=== PATIENT | male | born 1950 | race Caucasian/White ===

== ENCOUNTER → 2017-10-25 | Day surgery (SDC) | payer MEDICARE, BC ==
[~2017-10-25] MED LIST: Lactated Ringers 1,000 ML IV SCH; Propofol 200 MG/20 ML SDV IV ONE
[2017-10-25 10:40] VITALS: BP 143/77
--- NOTE | 2017-10-28 09:29 | OR ---
DATE OF OPERATION: 10/25/2017 PREOPERATIVE DIAGNOSIS: FOLLOW UP POLYPS. POSTOPERATIVE DIAGNOSIS: FOLLOW UP POLYPS. SURGEON: Mason Connolly MD PROCEDURE: FULL-LENGTH COLONOSCOPY. 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 COMPLICATIONS: None. SPECIMEN: None. FINDINGS: 1. Full-length colonoscopy. 2. Moderate sigmoid diverticulosis. 3. Tubulovillous adenoma, cecum. RECOMMENDATIONS: It was a difficult patient with a difficult scope. We were having a hard time keeping the scope in the cecal pouch to safely remove this larger villous adenoma. There was no stalk on this and felt to be safer to remove via Dr. Babcock. INDICATIONS: The patient had a prior colonoscopy and had a larger villous adenoma removed in his sigmoid. He is in for a 2-year follow up. DESCRIPTION OF PROCEDURE: The patient was prepped and draped, placed in left lateral decubitus position. A lubricated Olympus colonoscope was inserted and relatively easily advanced to the cecum. The patient does have a long and tortuous colon. We were able to get right up to the cecum and visualize greater than 1 cm tubulovillous adenoma in the cecal pouch, but we had to put him in a couple of different positions to get the scope into the pouch itself. We were having a hard time holding the scope there, to insert snare for retrieval. The patient was starting to have some bradycardia due to abdominal pressure, and we felt unsafe to remove this in [place], and we elected to leave this for a higher level of care. The ascending colon was benign. There were a few small hyperplastic polyps right at the hepatic flexure, which were left at this time. Transverse and descending colons unremarkable. The patient does have scattered diverticula, moderate in severity, in the sigmoid region without any other lesions seen. No vascular abnormalities, signs of colitis, or bleeding sites. Rectal vault was benign. Retroflexion showed no anal lesions. Air was suctioned and scope was removed without complication. NGHIA/ANURAG /[id number]
== END ==
LOC: CC.SDS 08:34
PROVIDERS: ATTEND Family Medicine
DX: Z12.11 Encounter for screening for malignant neoplasm of colon (principal); K63.5 Polyp of colon; K57.30 Diverticulosis of large intestine without perforation or abscess without bleeding; R00.1 Bradycardia, unspecified; I10 Essential (primary) hypertension; N40.0 Benign prostatic hyperplasia without lower urinary tract symptoms; Z86.010 Personal history of colon polyps; Z79.82 Long term (current) use of aspirin; Z79.899 Other long term (current) drug therapy; Z72.0 Tobacco use
CPT/HCPCS: J2704; J7120

== ENCOUNTER → 2018-11-14 | Day surgery (SDC) | payer MEDICARE, BC ==
[2018-11-14 09:45] VITALS: BP 104/64
--- NOTE | 2018-11-14 13:36 | OR ---
DATE OF OPERATION: 11/14/2018 PREOPERATIVE DIAGNOSIS: FOLLOW UP POLYPS. POSTOPERATIVE DIAGNOSIS: FOLLOW UP POLYPS. SURGEON: Mason Connolly MD PROCEDURE: DIAGNOSTIC COLONOSCOPY WITH SNARE POLYPECTOMY X2. 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 COMPLICATIONS: None. SPECIMEN: Villous adenomas, right colon x2. FINDINGS: 1. Full-length colonoscopy. 2. [id number] sigmoid diverticulosis. 3. Villous adenomas, less than a cm, right colon x2. RECOMMENDATIONS: Followup colonoscopy in 3 years. INDICATIONS: The patient had a prior colonoscopy with multiple polyps removed by GI in the right colon including a large one in the cecum. They recommended a 1-year followup. DESCRIPTION OF PROCEDURE: The patient was prepped and draped, placed in left lateral decubitus position. A lubricated Olympus colonoscope was inserted and with ease advanced to the cecum. We were able to directly visualize the ileocecal valve and appendiceal orifice. The bowel prep was fine. Upon withdrawal, the cecal pouch looked fine, I did not see any polyp recurrence in that area. In the proximal ascending colon, the patient had a flat villous adenoma, approximately a cm in size, removed with a snare, and suctioned into polyp trap #1. He had a 2nd villous lesion, smaller, about 0.5 cm in the mid ascending colon, also removed with a snare and suctioned into polyp trap #2. The rest of the right and transverse colons were unremarkable. Left colon had diffuse diverticulosis, [id number] in severity, mostly in the sigmoid and rectosigmoid junction. No signs of any further polyps, mass, ulceration, or bleeding sites. No vascular abnormalities or signs of colitis. The rectal vault was unremarkable. Retroflexion of the scope in the rectum showed no anal lesions. Air was suctioned, the scope removed without complication. NGHIA/ANURAG /[id number]
== END ==
LOC: CC.SDS 07:11
PROVIDERS: ATTEND Family Medicine
DX: D12.2 Benign neoplasm of ascending colon (principal); D12.3 Benign neoplasm of transverse colon; E78.5 Hyperlipidemia, unspecified; I10 Essential (primary) hypertension; Z79.899 Other long term (current) drug therapy; Z86.010 Personal history of colon polyps; I48.91 Unspecified atrial fibrillation; K57.30 Diverticulosis of large intestine without perforation or abscess without bleeding
CPT/HCPCS: 45385; J2704; J7120

== ENCOUNTER 2018-12-30 12:10 | Emergency (ER) | payer MEDICARE, BC ==
[2018-12-30 12:33] VITALS: BP 154/89
--- NOTE | 2018-12-30 12:45 | EDM.PDOC ---
ED HPI GENERAL MEDICAL PROBLEM - General Stated Complaint: PASSED OUT Time Seen by Provider: 12/30/18 12:34 - History of Present Illness INITIAL COMMENTS - FREE TEXT/NARRATIVE: Etienne is a 68 year old male who presents to the ED via EMS. Reports he was at an auction sale this morning and was standing still for about 1.5 hours. He reports his legs started to get weak so he went to sit down on a tractor hitch/ wheel. Reports the next thing he knows he woke up on the ground. Bystanders reports brief LOC. He did fall and hit his head and RUE on the tractor. Has hematoma to right temporal area and abrasion to RUE. He denies any complaints upon presentation to ED. He denies any dizziness or chest pain prior to syncopal episode. He denies any headache, pain, N/V/D, chest pain, cough, shortness of breath. He reports he is feeling well and has no complaints. Patient received 1 L NS fluid bolus enroute via EMS. Onset: Today, Sudden Onset Date: 12/30/18 Onset Time: 11:00 Duration: Resolved Prior to Arrival Associated Symptoms: Reports: Syncope. 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: Reports: See EMS Report - Related Data Allergies Allergy/AdvReac Type Severity Reaction Status Date / Time No Known Allergies Allergy Verified 11/14/18 07:24 Home Meds: Home Meds Aspirin [Halfprin] 81 mg PO DAILY 12/31/14 [History] Cranberry Extract [Cranberry] 250 mg PO DAILY 12/31/14 [History] Metoprolol Tartrate 50 mg PO BID 10/25/17 [History] Lisinopril/Hydrochlorothiazide [Lisinopril-Hctz 20-25 mg Tab] 1.5 each PO DAILY 11/13/18 [History] amLODIPine Besylate [Amlodipine Besylate] 10 mg PO DAILY 11/13/18 [History] ED ROS GENERAL - Review of Systems Review Of Systems: ROS reveals no pertinent complaints other than HPI. - Physical Exam Exam: See Below Exam Limited By: No Limitations General Appearance: Alert, WD/WN, No Apparent Distress Eye Exam: Bilateral Eye: EOMI, Normal Fundi, Normal Inspection, PERRL Ears: Normal External Exam, Normal Canal, Hearing Grossly Normal, Normal TMs Nose: Normal Inspection, Normal Mucosa, No Blood Throat/Mouth: Normal Inspection, Normal Lips, Normal Teeth, Normal Gums, Normal Oropharynx, Normal Voice, No Airway Compromise Head Exam: Normocephalic, Scalp Abrasions (left temporal area), Scalp Hematoma ( left temporal area) Neck: Normal Inspection, Supple, Non-Tender, Full Range of Motion Respiratory/Chest: No Respiratory Distress, Lungs Clear, Normal Breath Sounds, No Accessory Muscle Use, Chest Non-Tender Cardiovascular: Normal Peripheral Pulses, Regular Rate, Rhythm, No Edema, No Gallop, No JVD, No Murmur, No Rub GI/Abdominal: Normal Bowel Sounds, Soft, Non-Tender, No Organomegaly, No Distention, No Abnormal Bruit, No Mass, Hernia (umbilical) Neuro Exam (Abbreviated): Alert, Oriented, CN II-XII Intact, Normal Cognition, Normal Gait, Normal Reflexes, No Motor/Sensory Deficits Back Exam: Normal Inspection, Full Range of Motion, NT Extremities: Normal Inspection, Normal Range of Motion, Non-Tender, No Pedal Edema, Normal Capillary Refill Psychiatric: Normal Affect, Normal Mood Course - Vital Signs Last Recorded V/S: Last Vital Signs Temp 98.9 F 12/30/18 12:10 Pulse 73 12/30/18 12:10 Resp 20 12/30/18 12:10 BP 154/89 H 12/30/18 12:10 Pulse Ox 98 12/30/18 12:10 - Orders/Labs/Meds Orders: Active Orders 24 hr Category Date Time Status Head wo Cont [CT] Stat Exams 12/30/18 12:44 Taken Labs: Laboratory Tests 12/30/18 12/30/18 12/30/18 Range/Units 12:26 12:26 12:26 WBC 12.3 H (5.0-10.0) 10^3/uL RBC 5.19 (4.50-6.00) 10^6/uL Hgb 15.7 (14.0-18.0) g/dL Hct 45.7 (40.0-54.0) % MCV 88.1 (82.0-94.0) fL MCH 30.3 (27.0-32.0) pg MCHC 34.4 (33.0-38.0) g/dL RDW Coeff of Dontae 13.5 (11.0-15.0) % Plt Count 197 (150-400) 10^3/uL Neut % (Auto) 85.6 H (35-85) % Lymph % (Auto) 5.9 L (10-55) % Rich % (Auto) 6.8 (0-16) % Eos % (Auto) 1.5 (0-5) % Baso % (Auto) 0.2 (0-3) % Neut # (Auto) 10.51 H (1.80-7.00) 10^3/uL Lymph # (Auto) 0.73 L (1.00-4.80) 10^3/uL Rich # (Auto) 0.84 H (0.00-0.80) 10^3/uL Eos # (Auto) 0.18 (0.00-0.45) 10^3/uL Baso # (Auto) 0.02 10^3/uL Sodium 141 (136-145) mEq/L Potassium 3.5 (3.5-5.0) mEq/L Chloride 103 (98-106) mEq/L Carbon Dioxide 30 (21-32) mmol/L BUN 25 H (7-18) mg/dL Creatinine 1.2 (0.7-1.3) mg/dL Est Cr Clr Drug Dosing 65.66 mL/min Estimated GFR (MDRD) > 60 (>=60) mL/min Glucose 119 H (75-99) mg/dL Calcium 9.2 (8.4-10.1) mg/dL Total Bilirubin 0.6 (0.0-1.0) mg/dL AST 19 (15-37) U/L ALT 25 (12-78) U/L Alkaline Phosphatase 72 (46-116) U/L Troponin I < 0.017 (0.00-0.06) ng/mL Total Protein 7.0 (6.4-8.2) g/dL Albumin 3.5 (3.4-5.0) g/dL TSH, Ultra Sensitive 3.17 (0.36-5.60) uIU/mL Urine Color Yellow (YELLOW) Urine Appearance Clear (CLEAR) Urine pH 6.5 (4.5-8.0) Ur Specific [place] 1.020 (1.003-1.020) Urine Protein Negative (NEGATIVE) mg/dL Urine Glucose (UA) Negative (NEGATIVE) mg/dL Urine Ketones Negative (NEGATIVE) mg/dL Urine Occult Blood Negative (NEGATIVE) Urine Nitrite Negative (NEGATIVE) Urine Bilirubin Negative (NEGATIVE) Urine Urobilinogen 0.2 (0.2-1.0) EU/dL Ur Leukocyte Esterase Negative (NEGATIVE) - Radiology Interpretation Free Text/Narrative:: Head CT negative for acute changes. CT Results Date: 12/30/18 CT Results Time: 14:42 - Re-Assessments/Exams Free Text/Narrative Re-Assessment/Exam: 12/30/18 13:45 Discussed lab results with patient and . Labs all stable. Awaiting CT results. Patient has no complaints and is feeling well. Cardiac monitoring remains NSR. 12/30/18 14:[address] results and discharge recommendations with patient and . Patient doing well. No complaints. Departure - Departure Time of Disposition: 14:40 Disposition: Home, Self-Care 01 Condition: Good Clinical Impression: Vasovagal syncope - Discharge Information *PRESCRIPTION DRUG MONITORING PROGRAM REVIEWED*: Not Applicable *COPY OF PRESCRIPTION DRUG MONITORING REPORT IN PATIENT EDDIE: Not Applicable Referrals: Jeffy Morris PA-C [Primary Care Provider] - Forms: ED Department Discharge Additional Instructions: 1) Take it easy the next few days 2) Drink at least 64 ounces water daily 3) Avoid standing still for excessive time periods 4) Follow up with Joseph HALEY in next 5-7 days - My Orders Last 24 Hours: My Active Orders 12/30/18 12:44 Head wo Cont [CT] Stat - Assessment/Plan Last 24 Hours: My Active Orders 12/30/18 12:44 Head wo Cont [CT] Stat Plan: Patient received 1 L fluid bolus. Was asymptomatic throughout ED stay. Discussed with patient and that he likely had vasovagal syncopal episode as he was standing still for extended period of time. All workup normal. Head CT negative. Recommended patient follow up outpatient with PCP for further workup in next 5-7 days. Patient and verbalized understanding. Patient discharged from facility in satisfactory condition. Ambulatory at time of discharge.
[2018-12-30 13:02] LABS: CHLORIDE,CL 103 mEq/L (98-106); SODIUM,NA 141 mEq/L (136-145)
== END 2018-12-30 14:50 | disposition home or self-care (01) ==
LOC: CC.ED 12:10
DX: R55 Syncope and collapse (principal); S00.01XA Abrasion of scalp, initial encounter; Z79.899 Other long term (current) drug therapy; W18.39XA Other fall on same level, initial encounter; Z79.82 Long term (current) use of aspirin
CPT/HCPCS: 36415; 70450; 80053; 81003; 84443; 84484; 85025; 93005; 99285-25

== ENCOUNTER → 2019-02-19 | Day surgery (SDC) | payer MEDICARE, BC ==
[~2019-02-19] MED LIST changes: +Bupivacaine 0.25%/EPINEPHrine 1:200,000 10 ML SDV ONE; +Midazolam 1 MG/ML 2 ML SDV IV ONE; +fentaNYL 100 MCG/2 ML SDV IV ONE
[2019-02-19 16:49] VITALS: BP 136/88
--- NOTE | 2019-02-19 17:40 | OR ---
DATE OF OPERATION: 02/19/2019 PREOPERATIVE DIAGNOSIS: RIGHT CARPAL TUNNEL SYNDROME. POSTOPERATIVE DIAGNOSIS: RIGHT CARPAL TUNNEL SYNDROME. SURGEON: Narciso Gallagher MD PROCEDURE: RELEASE OF RIGHT CARPAL TUNNEL SYNDROME. ANESTHESIA: Eliseo block and local anesthesia. SPECIMEN: None. INDICATIONS: This 68-year-old male has had bilateral carpal tunnel syndrome and fairly good relief after the left one has been released. He now has more difficulty with the right one. DESCRIPTION OF PROCEDURE: After adequate preparation, a longitudinal incision was made along the median palm crease at the wrist and taken down to the transverse carpal ligament. This was sharply incised with a 15 blade and using sharp dissection and a small Metzenbaum scissor, the entire transverse carpal ligament was transected. This was then freed up from the median nerve underneath slightly. No injury to the nerve was noted. There was almost no bleeding. Local 0.25% Marcaine was used to infiltrate the transverse carpal ligament. The wound was closed using interrupted 2-0 nylon sutures, which will be removed in 2 weeks. Local was then infiltrated into the skin. BPB/MODL /[id number]
== END ==
LOC: CC.SDS 09:19
PROVIDERS: ATTEND Surgery
DX: G56.01 Carpal tunnel syndrome, right upper limb (principal); I10 Essential (primary) hypertension; E78.5 Hyperlipidemia, unspecified; Z79.82 Long term (current) use of aspirin; Z79.899 Other long term (current) drug therapy; Z86.79 Personal history of other diseases of the circulatory system
CPT/HCPCS: 64721; J2250; J2704; J3010; J7120

== ENCOUNTER 2019-09-23 20:05 | Observation (INO) | payer MEDICARE, BC ==
[2019-09-23] MEDS ORDERED: Aspirin 81 MG Tab.Chew PO ONE (20:19)
[2019-09-23 20:50] LABS: CHLORIDE,CL 105 mEq/L (98-106); SODIUM,NA 144 mEq/L (136-145)
--- NOTE | 2019-09-23 21:23 | EDM.PDOC ---
ED HPI GENERAL MEDICAL PROBLEM - General Chief Complaint: General Stated Complaint: passed out Time Seen by Provider: 09/23/19 20:33 Source of Information: Reports: Patient, Family History Limitations: Reports: No Limitations - History of Present Illness INITIAL COMMENTS - FREE TEXT/NARRATIVE: Patient presents to ER per EMS after a syncopal episode at home. 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 Was doing fine at that time but admits was "tired". Came upstairs to take a shower and eat supper. He was sitting at the table when he told his he wasn't feeling well. Was on a stool and leaning down on his elbows. Not responding much verbally to and arm was shaking. She proceeded to call 911 and while doing so, fell to the floor and was "out" for a few seconds. EMS noted patient in atrial fib. Has history of paroxysmal atrial fib. Has been doing well for over a year, currently not on any medications for it but noted to be on metoprolol. Family reports that was in [facility] back in 2017 when diagnosed. Rate was "high but he never even noted it". patient currently feels well. Denies any chest pain, shortness of breath or nausea. No lightheadedness. Has had a mild URI as of late with a cough. No fevers. Onset: Today, Sudden Duration: Minutes: Location: Reports: Head Associated Symptoms: Reports: Cough, Syncope. Denies: Confusion, Chest Pain, Fever/Chills, Loss of Appetite, Nausea/Vomiting, Shortness of Breath - Related Data Allergies Allergy/AdvReac Type Severity Reaction Status Date / Time No Known Allergies Allergy Verified 02/19/19 10:11 Home Meds: Home Meds Aspirin [Halfprin] 81 mg PO DAILY 12/31/14 [History] Cranberry Fruit Extract [Cranberry] 250 mg PO DAILY 12/31/14 [History] Metoprolol Tartrate 50 mg PO BID 10/25/17 [History] Lisinopril/Hydrochlorothiazide [Lisinopril-Hctz 20-25 mg Tab] 1.5 each PO DAILY 11/13/18 [History] amLODIPine Besylate [Amlodipine Besylate] 10 mg PO DAILY 11/13/18 [History] Past Medical History Cardiovascular History: Reports: Afib, Hypertension Gastrointestinal History: Reports: Bowel Obstruction - Infectious Disease History Infectious Disease History: Reports: None - Past Surgical History Male Surgical History: Reports: Prostatectomy Social & Family History - Family History Family Medical History: Noncontributory - Tobacco Use Smoking Status *Q: Never Smoker - Caffeine Use Caffeine Use: Reports: None - Recreational Drug Use Recreational Drug Use: No ED ROS GENERAL - Review of Systems Review Of Systems: See Below Constitutional: Reports: Fatigue. Denies: Fever, Chills, Malaise, Weakness, Decreased Appetite HEENT: Denies: Ear Pain, Rhinitis, Sinus Problem, Throat Pain, Vertigo Respiratory: Reports: Cough. Denies: Shortness of Breath Cardiovascular: Reports: Lightheadedness (resolved). Denies: Chest Pain, Edema Endocrine: Reports: Fatigue GI/Abdominal: Denies: Abdominal Pain, Black Stool, Bloody Stool, Nausea, Vomiting : Reports: No Symptoms Musculoskeletal: Reports: No Symptoms Skin: Reports: No Symptoms Neurological: Reports: Syncope, Weakness. Denies: Dizziness ED EXAM, GENERAL - Physical Exam Exam: See Below Exam Limited By: No Limitations General Appearance: Alert, WD/WN, No Apparent Distress Eye Exam: Bilateral Eye: EOMI, PERRL Ears: Normal External Exam, Normal TMs Nose: Normal Inspection, Normal Mucosa, No Blood Throat/Mouth: Normal Inspection, Normal Oropharynx Head: Normocephalic Neck: Normal Inspection, Supple, Non-Tender Respiratory/Chest: No Respiratory Distress, Lungs Clear, Normal Breath Sounds Cardiovascular: Irregularly Irregular GI/Abdominal: Normal Bowel Sounds, Soft, Non-Tender Extremities: Normal Inspection, No Pedal Edema Neurological: Alert, Oriented Skin Exam: Warm, Dry Course - Vital Signs Last Recorded V/S: Last Vital Signs Temp 97.2 F 09/23/19 20:07 Pulse 82 09/23/19 20:52 Resp 18 09/23/19 20:52 BP 103/66 09/23/19 20:52 Pulse Ox 95 09/23/19 20:52 - Orders/Labs/Meds Orders: Active Orders 24 hr Category Date Time Status EKG Documentation Completion [RC] STAT Care 09/23/19 20:19 Active Chest 2V [CR] Stat Exams 09/23/19 20:19 Taken Head wo Cont [CT] Stat Exams 09/23/19 20:19 Taken UA W/MICROSCOPIC [URIN] Stat Lab 09/23/19 21:03 Ordered Labs: Laboratory Tests 09/23/19 09/23/19 09/23/19 Range/Units 20:32 20:32 20:32 WBC 14.3 H (5.0-10.0) 10^3/uL RBC 5.11 (4.50-6.00) 10^6/uL Hgb 15.4 (14.0-18.0) g/dL Hct 44.5 (40.0-54.0) % MCV 87.1 (82.0-94.0) fL MCH 30.1 (27.0-32.0) pg MCHC 34.6 (33.0-38.0) g/dL RDW Coeff of Dontae 13.4 (11.0-15.0) % Plt Count 249 (150-400) 10^3/uL Neut % (Auto) 83.0 (35-85) % Lymph % (Auto) 9.7 L (10-55) % [place] % (Auto) 5.5 (0-16) % Eos % (Auto) 1.5 (0-5) % Baso % (Auto) 0.3 (0-3) % Neut # (Auto) 11.86 H (1.80-7.00) 10^3/uL Lymph # (Auto) 1.38 (1.00-4.80) 10^3/uL [place] # (Auto) 0.79 (0.00-0.80) 10^3/uL Eos # (Auto) 0.21 (0.00-0.45) 10^3/uL Baso # (Auto) 0.04 10^3/uL PT 10.4 (9.7-12.3) SEC INR 1.01 (0.92-1.18) APTT 23.8 (23.2-32.3) SEC Sodium 144 (136-145) mEq/L Potassium 3.0 L (3.5-5.0) mEq/L Chloride 105 (98-106) mEq/L Carbon Dioxide 27 (21-32) mmol/L BUN 35 H D (7-18) mg/dL Creatinine 1.7 H (0.7-1.3) mg/dL Est Cr Clr Drug Dosing 46.35 mL/min Estimated GFR (MDRD) 40 L (>=60) mL/min Glucose 171 H D (75-99) mg/dL Calcium 9.2 (8.4-10.1) mg/dL Total Bilirubin 0.5 (0.0-1.0) mg/dL AST 23 (15-37) U/L ALT 21 (12-78) U/L Alkaline Phosphatase 62 (46-116) U/L Lactate Dehydrogenase 158 (100-190) U/L Creatine Kinase 226 (35-232) U/L Troponin I < 0.017 (0.00-0.06) ng/mL Total Protein 6.5 (6.4-8.2) g/dL Albumin 3.3 L (3.4-5.0) g/dL Lipase 129 (73-393) U/L Meds: Medications Discontinued Medications Generic Name Dose Route Start Last Admin Trade Name Freq PRN Reason Stop Dose Admin Aspirin 324 mg 09/23/19 20:19 Aspirin PO 09/23/19 20:20 ONETIME ONE - Re-Assessments/Exams Free Text/Narrative Re-Assessment/Exam: 09/23/19 2100 Patient's labs noted. WBC is elevated at 14.3 Chest xray is normal. Will obtain UA. No fevers. Potassium 3.0, BUN and creatinine are high, start IV fluids with potassium. Admit to observation. Follow telemetry. Repeat enzymes in am. Departure - Departure Time of Disposition: 21:32 Disposition: Refer to Observation Condition: Fair Clinical Impression: Syncope Qualifiers: Encounter type: initial encounter - Discharge Information *PRESCRIPTION DRUG MONITORING PROGRAM REVIEWED*: Not Applicable *COPY OF PRESCRIPTION DRUG MONITORING REPORT IN PATIENT EDDIE: Not Applicable Referrals: PCP,None [Primary Care Provider] - Sepsis Event Note - Evaluation Sepsis Screening Result: No Definite Risk - Focused Exam Vital Signs: Vital Signs Temp Pulse Resp BP Pulse Ox 09/23/19 20:52 82 18 103/66 95 09/23/19 20:37 82 16 94/60 96 09/23/19 20:22 83 16 100/66 95 09/23/19 20:07 97.2 F 95 19 110/65 95 Date Exam was Performed: 09/23/19 Time Exam was Performed: 21:13 - Problem List & Annotations (1) Syncope SNOMED Code(s): 325714347 Code(s): R55 - SYNCOPE AND COLLAPSE Status: Acute Priority: High Current Visit: Yes Qualifiers: Encounter type: initial encounter - Problem List Review Problem List Initiated/Reviewed/Updated: Yes - My Orders Last 24 Hours: My Active Orders 09/23/19 20:19 EKG Documentation Completion [RC] STAT Chest 2V [CR] Stat Head wo Cont [CT] Stat 09/23/19 21:03 UA W/MICROSCOPIC [URIN] Stat - Assessment/Plan Admission H&P: Please use this note as an admission H&P Last 24 Hours: My Active Orders 09/23/19 20:19 EKG Documentation Completion [RC] STAT Chest 2V [CR] Stat Head wo Cont [CT] Stat 09/23/19 21:03 UA W/MICROSCOPIC [URIN] Stat Assessment:: Syncope Plan: Patient admitted observation. Start IV fluids with potassium. Cardiac monitoring. Repeat labs in am.
[2019-09-23] MEDS ORDERED: Ondansetron 4 MG Tab.DIS PO PRN (21:46)
[2019-09-23] MEDS ORDERED: Enoxaparin 40 MG/0.4 ML Syringe SUBCUT SCH (21:46)
[2019-09-23] MEDS: NS + KCl 20mEq/L 1,000 ML IV SCH (21:56)
[2019-09-23] MEDS: Apixaban 5 MG Tab PO SCH (23:27)
[2019-09-24] MEDS: NS + KCl 20mEq/L 1,000 ML IV SCH (05:41)
[2019-09-24 07:40] LABS: CHLORIDE,CL 108 mEq/L (98-106); SODIUM,NA 143 mEq/L (136-145)
[2019-09-24] MEDS ORDERED: Iopamidol 755 Mg/ML 100 ML Bottle IVPUSH ONE (07:48)
[2019-09-24] MEDS ORDERED: amLODIPine 10 MG Tab PO SCH (08:00)
[2019-09-24] MEDS ORDERED: Metoprolol Tartrate 50 MG Tab**OWN MED PO SCH (08:00)
[2019-09-24] MEDS ORDERED: Hydrochlorothiazide 25 MG Tab PO SCH (08:00)
[2019-09-24] MEDS ORDERED: Aspirin 81 MG Tab.EC PO SCH (08:00)
[2019-09-24] MEDS ORDERED: Lisinopril 10 MG Tab PO SCH (08:00)
[2019-09-24] MEDS ORDERED: Metoprolol Tartrate 50 MG Tab PO SCH (08:00)
[2019-09-24] MEDS ORDERED: amLODIPine 10 MG Tab**OWN MED PO SCH (08:00)
[2019-09-24] MEDS ORDERED: LISINOPRIL HYDROCHLOROTHIAZIDE PO SCH (08:00)
[2019-09-24] MEDS: Apixaban 5 MG Tab PO SCH (08:14)
[2019-09-24 08:17] VITALS: BP 125/72; PULSE 75
--- NOTE | 2019-09-24 10:06 | PCM.DCSUM1 ---
Discharge Summary - Hospital Course Free Text/Narrative:: Etienne is a 68 year old male who presented to ER after a syncopal episode at home. 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 Had come up to shower and was sitting at the table eating supper when noted he got pale, wasn't responding as well. Stated wasn't feeling well. Laid his head down on the table and when she reached the phone to call 911, he fell to the floor and was unresponsive for several seconds. He awoke without incident, no head trauma. States felt fine when he awoke. No loss of urine or bowel. Admits that his hand was shaking and his breathing was sonorous for a few minutes but oriented upon awakening. EMS on arrival did note heart rate of 85, atrial fib. Patient has history of paroxysmal atrial fib, was transferred in 2017 with first onset of it at that time. Had taken Xarelto for a short time but wore a monitor and was more consistently back in sinus rhythm so went off Xarelto and has been taking aspirin. Labs in ER negative. EKG atrial fib with controlled rate. 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 Admitted for observation, neurology consult. Per neurologist, recommended treating atrial fib and obtaining CTA of head and neck and MRI of brain as did not feel CT scan was conclusive for CVA. Neurological exam is normal, NIH score 0. Diagnosis: Stroke: No Modified Richards Scale: No Symptoms at All Modified Richards Scale Score: 0 - Discharge Data Discharge Date: 09/24/19 Discharge Disposition: Home, Self-Care 01 Condition: Good - Referral to Home Health Primary Care Physician: PCP None - Discharge Diagnosis/Problem(s) (1) Syncope SNOMED Code(s): 928485892 ICD Code: R55 - SYNCOPE AND COLLAPSE Status: Acute Priority: High Qualifiers: Encounter type: initial encounter - Patient Summary/Data Complications: none Hospital Course: Patient doing well. Did convert back to NSR. Continues on Eliquis at this time , metoprolol to control rate. Had CTAs done this am. Neurological exam has remained normal. Blood pressure in good control. Ambulating, eating well. Will discharge home, return tomorrow for MRI. Follow up with Joseph next week for all results. - Patient Instructions Diet: Usual Diet as Tolerated Activity: As Tolerated - Discharge Plan *PRESCRIPTION DRUG MONITORING PROGRAM REVIEWED*: Not Applicable *COPY OF PRESCRIPTION DRUG MONITORING REPORT IN PATIENT EDDIE: Not Applicable Prescriptions/Med Rec: Apixaban [Eliquis] 5 mg PO BID #60 tablet Potassium Chloride 10 meq PO DAILY #30 tablet.er Home Medications: Home Meds Aspirin [Halfprin] 81 mg PO DAILY 12/31/14 [History] Cranberry Fruit Extract [Cranberry] 250 mg PO DAILY 12/31/14 [History] Metoprolol Tartrate 50 mg PO BID 10/25/17 [History] Lisinopril/Hydrochlorothiazide [Lisinopril-Hctz 20-25 mg Tab] 1.5 each PO DAILY 11/13/18 [History] amLODIPine Besylate [Amlodipine Besylate] 10 mg PO DAILY 11/13/18 [History] Apixaban [Eliquis] 5 mg PO BID #60 tablet 09/24/19 [Rx] Potassium Chloride 10 meq PO DAILY #30 tablet.er 09/24/19 [Rx] Patient Handouts: Hypokalemia, Syncope Forms: ED Department Discharge Referrals: Jeffy Morris PA-C [Physician Medical Doctor Md/Medical Director] - (Hospital follow up in one week with Joseph Morris. Repeat labs prior to appointment ) - Discharge Summary/Plan Comment DC Time >30 min.: No - General Info Date of Service: 09/24/19 Admission Dx/Problem (Free Text: Syncope Atrial Fib Functional Status: Reports: Pain Controlled, Tolerating Diet, Ambulating - Review of Systems General: Reports: No Symptoms HEENT: Reports: No Symptoms Pulmonary: Denies: Shortness of Breath Cardiovascular: Denies: Chest Pain, Edema, Lightheadedness Gastrointestinal: Denies: Abdominal Pain, Nausea, Vomiting Genitourinary: Reports: No Symptoms Musculoskeletal: Reports: No Symptoms Skin: Reports: No Symptoms Neurological: Denies: Dizziness, Headache, Syncope, Weakness Psychiatric: Reports: No Symptoms - Patient Data Vitals - Most Recent: Last Vital Signs Temp 97.9 F 09/24/19 08:00 Pulse 75 09/24/19 08:13 Resp 18 09/24/19 08:00 BP 125/72 09/24/19 08:13 Pulse Ox 96 09/24/19 08:00 Weight - Most Recent: 245 lb 11.2 oz I&O - Last 24 hours: Intake & Output 09/23/19 09/24/19 09/24/19 22:59 06:59 14:59 Intake Total 969 Balance 969 Lab Results - Last 24 hrs: Laboratory Results - last 24 hr 09/23/19 09/23/19 09/23/19 Range/Units 20:32 20:32 20:32 WBC 14.3 H (5.0-10.0) 10^3/uL RBC 5.11 (4.50-6.00) 10^6/uL Hgb 15.4 (14.0-18.0) g/dL Hct 44.5 (40.0-54.0) % MCV 87.1 (82.0-94.0) fL MCH 30.1 (27.0-32.0) pg MCHC 34.6 (33.0-38.0) g/dL RDW Coeff of Dontae 13.4 (11.0-15.0) % Plt Count 249 (150-400) 10^3/uL Neut % (Auto) 83.0 (35-85) % Lymph % (Auto) 9.7 L (10-55) % [place] % (Auto) 5.5 (0-16) % Eos % (Auto) 1.5 (0-5) % Baso % (Auto) 0.3 (0-3) % Neut # (Auto) 11.86 H (1.80-7.00) 10^3/uL Lymph # (Auto) 1.38 (1.00-4.80) 10^3/uL [place] # (Auto) 0.79 (0.00-0.80) 10^3/uL Eos # (Auto) 0.21 (0.00-0.45) 10^3/uL Baso # (Auto) 0.04 10^3/uL PT 10.4 (9.7-12.3) SEC INR 1.01 (0.92-1.18) APTT 23.8 (23.2-32.3) SEC Sodium 144 (136-145) mEq/L Potassium 3.0 L (3.5-5.0) mEq/L Chloride 105 (98-106) mEq/L Carbon Dioxide 27 (21-32) mmol/L BUN 35 H D (7-18) mg/dL Creatinine 1.7 H (0.7-1.3) mg/dL Est Cr Clr Drug Dosing 46.35 mL/min Estimated GFR (MDRD) 40 L (>=60) mL/min Glucose 171 H D (75-99) mg/dL Calcium 9.2 (8.4-10.1) mg/dL Total Bilirubin 0.5 (0.0-1.0) mg/dL AST 23 (15-37) U/L ALT 21 (12-78) U/L Alkaline Phosphatase 62 (46-116) U/L Lactate Dehydrogenase 158 (100-190) U/L Creatine Kinase 226 (35-232) U/L Troponin I < 0.017 (0.00-0.06) ng/mL C-Reactive Protein (0.2-0.8) mg/dL Total Protein 6.5 (6.4-8.2) g/dL Albumin 3.3 L (3.4-5.0) g/dL Lipase 129 (73-393) U/L Urine Color (YELLOW) Urine Appearance (CLEAR) Urine pH (4.5-8.0) Ur Specific [place] (1.003-1.020) Urine Protein (NEGATIVE) mg/dL Urine Glucose (UA) (NEGATIVE) mg/dL Urine Ketones (NEGATIVE) mg/dL Urine Occult Blood (NEGATIVE) Urine Nitrite (NEGATIVE) Urine Bilirubin (NEGATIVE) Urine Urobilinogen (0.2-1.0) EU/dL Ur Leukocyte Esterase (NEGATIVE) Urine RBC (0-5) /HPF Urine WBC (0-5) /HPF Hyaline Casts (NOT SEEN) /LPF Urine Mucus (NOT SEEN) /HPF 09/23/19 09/24/19 09/24/19 Range/Units 21:03 07:10 07:10 WBC 7.1 (5.0-10.0) 10^3/uL RBC 4.76 (4.50-6.00) 10^6/uL Hgb 14.3 (14.0-18.0) g/dL Hct 41.9 (40.0-54.0) % MCV 88.0 (82.0-94.0) fL MCH 30.0 (27.0-32.0) pg MCHC 34.1 (33.0-38.0) g/dL RDW Coeff of Dontae 13.4 (11.0-15.0) % Plt Count 215 (150-400) 10^3/uL Neut % (Auto) 67.2 (35-85) % Lymph % (Auto) 21.4 (10-55) % [place] % (Auto) 8.5 (0-16) % Eos % (Auto) 2.5 (0-5) % Baso % (Auto) 0.4 (0-3) % Neut # (Auto) 4.77 (1.80-7.00) 10^3/uL Lymph # (Auto) 1.52 (1.00-4.80) 10^3/uL [place] # (Auto) 0.60 (0.00-0.80) 10^3/uL Eos # (Auto) 0.18 (0.00-0.45) 10^3/uL Baso # (Auto) 0.03 10^3/uL PT (9.7-12.3) SEC INR (0.92-1.18) APTT (23.2-32.3) SEC Sodium 143 (136-145) mEq/L Potassium 3.2 L (3.5-5.0) mEq/L Chloride 108 H (98-106) mEq/L Carbon Dioxide 28 (21-32) mmol/L BUN 28 H (7-18) mg/dL Creatinine 1.3 (0.7-1.3) mg/dL Est Cr Clr Drug Dosing 60.61 mL/min Estimated GFR (MDRD) 55 L (>=60) mL/min Glucose 94 D (75-99) mg/dL Calcium 8.5 (8.4-10.1) mg/dL Total Bilirubin (0.0-1.0) mg/dL AST (15-37) U/L ALT (12-78) U/L Alkaline Phosphatase (46-116) U/L Lactate Dehydrogenase (100-190) U/L Creatine Kinase (35-232) U/L Troponin I < 0.017 (0.00-0.06) ng/mL C-Reactive Protein < 0.2 L (0.2-0.8) mg/dL Total Protein (6.4-8.2) g/dL Albumin (3.4-5.0) g/dL Lipase (73-393) U/L Urine Color Yellow (YELLOW) Urine Appearance Clear (CLEAR) Urine pH 5.5 (4.5-8.0) Ur Specific [place] 1.025 H (1.003-1.020) Urine Protein Trace H (NEGATIVE) mg/dL Urine Glucose (UA) Negative (NEGATIVE) mg/dL Urine Ketones Trace H (NEGATIVE) mg/dL Urine Occult Blood Negative (NEGATIVE) Urine Nitrite Negative (NEGATIVE) Urine Bilirubin Negative (NEGATIVE) Urine Urobilinogen 0.2 (0.2-1.0) EU/dL Ur Leukocyte Esterase Negative (NEGATIVE) Urine RBC Not seen (0-5) /HPF Urine WBC 0-5 (0-5) /HPF Hyaline Casts Few H (NOT SEEN) /LPF Urine Mucus Few H (NOT SEEN) /HPF Med Orders - Current: Current Medications Amlodipine Besylate (Norvasc) 10 mg PO DAILY [facility] Last Admin: 09/24/19 08:12 Dose: Not Given Apixaban (Eliquis) 5 mg PO BID [facility] Last Admin: 09/24/19 08:14 Dose: 5 mg Aspirin (Halfprin) 81 mg PO DAILY [facility] Last Admin: 09/24/19 08:15 Dose: 81 mg Potassium Chloride/Sodium Chloride (Normal Saline With 20 Meq Kcl) 1,000 mls @ 125 mls/hr IV ASDIRECTED [facility] Last Admin: 09/24/19 05:41 Dose: 125 mls/hr Metoprolol Tartrate (Lopressor) 50 mg PO BID [facility] Last Admin: 09/24/19 08:13 Dose: 50 mg Lisinopril- Hydrochlorothiazide 20-25mgOwn Med 1.5 each PO DAILY [facility] Last Admin: 09/24/19 08:12 Dose: 1.5 each Ondansetron HCl (Zofran Odt) 4 mg PO Q4H PRN PRN Reason: nausea, able to take PO Discontinued Medications Amlodipine Besylate (Norvasc) 10 mg PO DAILY [facility] Aspirin (Aspirin) 324 mg PO ONETIME ONE Stop: 09/23/19 20:20 Last Admin: 09/23/19 20:19 Dose: 324 mg Enoxaparin Sodium (Lovenox) 40 mg SUBCUT Q24H [facility] Last Admin: 09/23/19 21:58 Dose: 40 mg Hydrochlorothiazide (Hydrochlorothiazide) 37.5 mg PO DAILY [facility] Iopamidol (Isovue-370 (76%)) 100 ml IVPUSH ONETIME ONE Stop: 09/24/19 07:49 Last Admin: 09/24/19 08:36 Dose: 100 ml Lisinopril (Prinivil) 30 mg PO DAILY [facility] Metoprolol Tartrate (Lopressor) 50 mg PO BID [facility] - Exam General: Reports: Alert, Oriented HEENT: Reports: Mucous Membr. Moist/[place] Neck: Reports: Supple Lungs: Reports: Clear to Auscultation, Normal Respiratory Effort Cardiovascular: Reports: Regular Rate, Regular Rhythm GI/Abdominal Exam: Normal Bowel Sounds, Soft, Non-Tender Extremities: Normal Inspection, No Pedal Edema Skin: Reports: Warm, Dry Neurological: Reports: No New Focal Deficit
== END 2019-09-24 10:28 | disposition home or self-care (01) ==
LOC: CC.ED 20:05 → UNDOADMOB 21:17 → CC.MS 21:17
PROVIDERS: ADMIT Physician Assistant Medical; ATTEND Family Medicine
DX: R55 Syncope and collapse (principal); I48.0 Paroxysmal atrial fibrillation; I10 Essential (primary) hypertension; Z79.82 Long term (current) use of aspirin; Z79.899 Other long term (current) drug therapy
CPT/HCPCS: 36415; 70450; 70496; 70498; 71046; 80048; 80053; 81001; 82550; 83615; 83690; 84484; 85025; 85610; 85730; 86140; 93005; 96360; 96361; 96372; 99285-25; A9270-GY; G0378; J1650; J3480; Q9967

== ENCOUNTER → 2020-01-21 | Day surgery (SDC) | payer MEDICARE, BC ==
[~2020-01-21] MED LIST changes: +Benzocaine 20% Oral Spray 59.2 ML Canister MUCMEM ONE; -Bupivacaine 0.25%/EPINEPHrine 1:200,000 10 ML SDV ONE; -Propofol 200 MG/20 ML SDV IV ONE; -fentaNYL 100 MCG/2 ML SDV IV ONE
[2020-01-21 09:42] VITALS: BP 124/69; PULSE 56
--- NOTE | 2020-01-21 14:17 | OR ---
DATE OF OPERATION: 01/21/2020 PREOPERATIVE DIAGNOSIS: 1. GASTROESOPHAGEAL REFLUX DISEASE. 2. IRREGULAR HEART TRACING. POSTOPERATIVE DIAGNOSIS: 1. GASTROESOPHAGEAL REFLUX DISEASE. 2. IRREGULAR HEART TRACING. SURGEON: Narciso Gallagher MD PROCEDURE: ESOPHAGOGASTRODUODENOSCOPY. ANESTHESIA: Conscious sedation with IV Versed. SPECIMEN: None. FINDINGS: A 2 to 3 cm hiatal hernia. A few scattered mid esophageal varices, otherwise normal. RECOMMENDATIONS: Follow up for reflux as needed. 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 Cardiology has requested an EGD to make sure that there is no difficulty with the esophagus causing these cardiac changes anyway and he also does have some reflux symptoms. DESCRIPTION OF PROCEDURE: After adequate preparation, a gastroscope was inserted into the esophagus. This was passed down to the distal esophagus. It shows a 2 to 3 cm hiatal hernia with some eversion of gastric mucosa up into the hernia sac. There was no evidence of distal esophagitis, masses, bleeding sites, tumors, or ulcerations. The scope was advanced into the stomach. Both forward and retroflexed views were done and were normal. The scope was advanced through the pylorus, and the first and second parts of the duodenum were also normal. Air was suctioned from the stomach and the scope removed. On withdrawal of the scope, there was some visible varicosities in the mid esophagus. These probably are not significant at all. There was no distal esophageal varices, which would be more common. In any event, I did not find any evidence of structural abnormalities that would be causing the cardiac symptoms. BPB/MODL /[id number]
== END ==
LOC: CC.SDS 07:26
PROVIDERS: ATTEND Surgery
DX: K21.9 Gastro-esophageal reflux disease without esophagitis (principal); I49.9 Cardiac arrhythmia, unspecified; I85.00 Esophageal varices without bleeding; K44.9 Diaphragmatic hernia without obstruction or gangrene; E78.5 Hyperlipidemia, unspecified; E87.6 Hypokalemia; I10 Essential (primary) hypertension; Z79.899 Other long term (current) drug therapy
CPT/HCPCS: 43235; J2250; J7120

== ENCOUNTER 2021-07-09 11:06 | Emergency (ER) | payer MEDICARE, BC ==
[2021-07-09 11:11] VITALS: BP 114/79; PULSE 69
[2021-07-09 11:50] LABS: CHLORIDE,CL 105 mEq/L (98-106); SODIUM,NA 144 mEq/L (136-145)
--- NOTE | 2021-07-09 12:43 | EDM.PDOC ---
ED HPI GENERAL MEDICAL PROBLEM - General Chief Complaint: Syncope Stated Complaint: near syncopal event Time Seen by Provider: 07/09/21 11:08 Source of Information: Reports: Patient, Family History Limitations: Reports: No Limitations - History of Present Illness INITIAL COMMENTS - FREE TEXT/NARRATIVE: Etienne is a 70 year old male who presents to ER with a near syncopal episode. Was standing at [employer], became diaphoretic, color turned "greyish" and felt lightheaded. Has had episodes like this in the past and was found to have atrial fib. Per his pacemaker, was told by Dr. Lewis that has paroxysmal atrial fib and is in it about 10% of the time. He is not typically aware of when this occurs. No shortness of breath. No chest pain. Does feel much better now. states his color has significantly improved. Did eat breakfast this am. Relates was hot in the [employer] today as well but has been drinking fluids. Onset: Today, Sudden Duration: Minutes:, Improving Location: Reports: Generalized Improves with: Reports: Rest Associated Symptoms: Reports: Diaphoresis, Syncope, Weakness. Denies: Confusion, Chest Pain, Fever/Chills, Headaches, Malaise, Nausea/Vomiting, Shortness of Breath - Related Data Allergies Allergy/AdvReac Type Severity Reaction Status Date / Time No Known Allergies Allergy Verified 07/09/21 11:06 Home Meds: Home Meds Cranberry Fruit Extract [Cranberry] 250 - 500 mg PO DAILY 12/31/14 [History] Metoprolol Tartrate 100 mg PO BID 10/25/17 [History] Lisinopril/Hydrochlorothiazide [Lisinopril-Hctz 20-25 mg Tab] 1.5 tab PO DAILY 11/13/18 [History] amLODIPine Besylate [Amlodipine Besylate] 10 mg PO DAILY 11/13/18 [History] Apixaban [Eliquis] 5 mg PO BID #60 tablet 09/24/19 [Rx] Potassium Chloride 10 meq PO DAILY #30 tablet.er 09/24/19 [Rx] Past Medical History Cardiovascular History: Reports: Afib, Hypertension Gastrointestinal History: Reports: Bowel Obstruction - Infectious Disease History Infectious Disease History: Reports: None - Past Surgical History Male Surgical History: Reports: Prostatectomy Social & Family History - Family History Family Medical History: No Pertinent Family History - Tobacco Use Tobacco Use Status *Q: Unknown Ever Used Tobacco - Caffeine Use Caffeine Use: Reports: None ED ROS GENERAL - Review of Systems Review Of Systems: See Below Constitutional: Denies: Fever, Chills, Malaise, Weakness, Fatigue HEENT: Reports: Throat Pain. Denies: Ear Pain, Rhinitis, Sinus Problem, Vertigo Respiratory: Reports: Cough. Denies: Shortness of Breath Cardiovascular: Reports: Edema, Lightheadedness. Denies: Chest Pain Endocrine: Denies: Fatigue GI/Abdominal: Denies: Abdominal Pain, Constipation, Diarrhea, Nausea, Vomiting : Reports: No Symptoms Musculoskeletal: Reports: No Symptoms Skin: Reports: Diaphoresis Neurological: Reports: Syncope. Denies: Confusion, Weakness - Physical Exam Exam: See Below Exam Limited By: No Limitations General Appearance: Alert, WD/WN, No Apparent Distress Eye Exam: Bilateral Eye: EOMI, PERRL Ears: Normal External Exam, Normal TMs Nose: Normal Inspection, Normal Mucosa, No Blood Throat/Mouth: Normal Inspection, Normal Oropharynx Head Exam: Normocephalic Neck: Normal Inspection, Supple, Non-Tender Respiratory/Chest: No Respiratory Distress, Lungs Clear, Normal Breath Sounds Cardiovascular: Irregularly Irregular GI/Abdominal: Normal Bowel Sounds, Soft, Non-Tender Neuro Exam (Abbreviated): Alert, Oriented, CN II-XII Intact, Normal Cognition, Normal Gait, Normal Reflexes, No Motor/Sensory Deficits Extremities: Normal Inspection, Pedal Edema (1+) Skin Exam: Warm, Dry #1 Interpretation EKG Date: 07/09/21 Rhythm: A-Fib P-Wave: Absent QRS: Normal ST-T: Normal Comparison: Change From Previous EKG Course - Vital Signs Last Recorded V/S: Last Vital Signs Temp 97.8 F 07/09/21 11:08 Pulse 69 07/09/21 11:08 Resp 16 07/09/21 11:08 BP 114/79 07/09/21 11:08 Pulse Ox 95 07/09/21 11:08 - Orders/Labs/Meds Orders: Active Orders 24 hr Category Date Time Status Chest 2V [CR] Stat Exams 07/09/21 11:11 Taken Head wo Cont [CT] Stat Exams 07/09/21 11:11 Taken Labs: Laboratory Tests 07/09/21 07/09/21 07/09/21 Range/Units 11:10 11:10 11:10 WBC 4.3 (4.0-11.0) 10^3/uL RBC 5.06 (4.50-6.00) x10^6/uL Hgb 15.5 (14.0-18.0) g/dL Hct 45.3 (42.0-52.0) % MCV 89.5 (83.0-97.0) fL MCH 30.6 (27.0-32.0) pg MCHC 34.2 (32.0-36.0) g/dL RDW Coeff of Dontae 13.1 (11.0-15.0) % Plt Count 151 (150-400) 10^3/uL Immature Gran % (Auto) 0.2 (0.0-4.9) % Neut % (Auto) 62.7 (41-71) % Lymph % (Auto) 18.0 L (24-44) % [place] % (Auto) 16.4 H (0-10) % Eos % (Auto) 1.8 (0-6) % Baso % (Auto) 0.9 (0-1) % Neut # (Auto) 2.72 (1.80-8.00) x10^3/uL Lymph # (Auto) 0.78 (0.60-5.00) 10^3/uL [place] # (Auto) 0.71 (0.00-1.50) 10^3/uL Eos # (Auto) 0.08 (0.00-1.50) 10^3/uL Baso # (Auto) 0.04 (0.00-0.50) 10^3/uL Immature Gran # (Auto) 0.01 (0.00-0.49) 10^3/uL D-Dimer, Quantitative (0.00-0.50) Sodium 144 (136-145) mEq/L Potassium 3.5 (3.5-5.0) mEq/L Chloride 105 (98-106) mEq/L Carbon Dioxide 29 (21-32) mmol/L BUN 20 H (7-18) mg/dL Creatinine 1.5 H (0.7-1.3) mg/dL Est Cr Clr Drug Dosing TNP Estimated GFR (MDRD) 46 L (>=60) mL/min Glucose 148 H (75-99) mg/dL Calcium 9.1 (8.4-10.1) mg/dL Total Bilirubin 0.5 (0.0-1.0) mg/dL AST 27 (15-37) U/L ALT 32 (12-78) U/L Alkaline Phosphatase 67 (46-116) U/L Lactate Dehydrogenase 190 (100-190) U/L Creatine Kinase 61 (35-232) U/L Troponin I High Sens 8.0 (<=76) pg/mL C-Reactive Protein < 0.2 L (0.2-0.8) mg/dL Total Protein 6.1 L (6.4-8.2) g/dL Albumin 3.0 L (3.4-5.0) g/dL Urine Color Yellow (YELLOW) Urine Appearance Clear (CLEAR) Urine pH 5.5 (4.5-8.0) Ur Specific [place] >= 1.030 H (1.003-1.020) Urine Protein 30 H (NEGATIVE) mg/dL Urine Glucose (UA) Negative (NEGATIVE) mg/dL Urine Ketones Trace H (NEGATIVE) mg/dL Urine Occult Blood Negative (NEGATIVE) Urine Nitrite Negative (NEGATIVE) Urine Bilirubin Negative (NEGATIVE) Urine Urobilinogen 0.2 (0.2-1.0) EU/dL Ur Leukocyte Esterase Negative (NEGATIVE) U Hyaline Cast (Auto) Moderate H (NOT SEEN) /LPF Urine RBC Not seen (0-5) /HPF Urine WBC 0-5 (0-5) /HPF Urine Bacteria Few H (NOT SEEN) /HPF Urine Mucus Moderate H (NOT SEEN) /HPF Urinalysis Comment 07/09/ Range/Units 11:10 WBC (4.0-11.0) 10^3/uL RBC (4.50-6.00) x10^6/uL Hgb (14.0-18.0) g/dL Hct (42.0-52.0) % MCV (83.0-97.0) fL MCH (27.0-32.0) pg MCHC (32.0-36.0) g/dL RDW Coeff of Dontae (11.0-15.0) % Plt Count (150-400) 10^3/uL Immature Gran % (Auto) (0.0-4.9) % Neut % (Auto) (41-71) % Lymph % (Auto) (24-44) % [place] % (Auto) (0-10) % Eos % (Auto) (0-6) % Baso % (Auto) (0-1) % Neut # (Auto) (1.80-8.00) x10^3/uL Lymph # (Auto) (0.60-5.00) 10^3/uL [place] # (Auto) (0.00-1.50) 10^3/uL Eos # (Auto) (0.00-1.50) 10^3/uL Baso # (Auto) (0.00-0.50) 10^3/uL Immature Gran # (Auto) (0.00-0.49) 10^3/uL D-Dimer, Quantitative 0.64 H (0.00-0.50) Sodium (136-145) mEq/L Potassium (3.5-5.0) mEq/L Chloride (98-106) mEq/L Carbon Dioxide (21-32) mmol/L BUN (7-18) mg/dL Creatinine (0.7-1.3) mg/dL Est Cr Clr Drug Dosing Estimated GFR (MDRD) (>=60) mL/min Glucose (75-99) mg/dL Calcium (8.4-10.1) mg/dL Total Bilirubin (0.0-1.0) mg/dL AST (15-37) U/L ALT (12-78) U/L Alkaline Phosphatase (46-116) U/L Lactate Dehydrogenase (100-190) U/L Creatine Kinase (35-232) U/L Troponin I High Sens (<=76) pg/mL C-Reactive Protein (0.2-0.8) mg/dL Total Protein (6.4-8.2) g/dL Albumin (3.4-5.0) g/dL Urine Color (YELLOW) Urine Appearance (CLEAR) Urine pH (4.5-8.0) Ur Specific [place] (1.003-1.020) Urine Protein (NEGATIVE) mg/dL Urine Glucose (UA) (NEGATIVE) mg/dL Urine Ketones (NEGATIVE) mg/dL Urine Occult Blood (NEGATIVE) Urine Nitrite (NEGATIVE) Urine Bilirubin (NEGATIVE) Urine Urobilinogen (0.2-1.0) EU/dL Ur Leukocyte Esterase (NEGATIVE) U Hyaline Cast (Auto) (NOT SEEN) /LPF Urine RBC (0-5) /HPF Urine WBC (0-5) /HPF Urine Bacteria (NOT SEEN) /HPF Urine Mucus (NOT SEEN) /HPF Urinalysis Comment - Re-Assessments/Exams Free Text/Narrative Re-Assessment/Exam: 07/09/21 Labs are all essentially unremarkable. BUN/creatinine are mildly elevated compared to normal. Urine shows high specific gravity. EKG atrial fib. Discussed with patient. Likely syncope related to heat/dehydration and paroxysmal atrial fib. Offered IV fluids. Declined. States is able to push fluids. Informed to notify DR. Lewis. Departure - Departure Time of Disposition: 12:40 Disposition: Home, Self-Care 01 Condition: Good Clinical Impression: Syncope Atrial fibrillation Qualifiers: Atrial fibrillation type: paroxysmal Qualified Code(s): I48.0 - Paroxysmal atrial fibrillation - Discharge Information *PRESCRIPTION DRUG MONITORING PROGRAM REVIEWED*: No *COPY OF PRESCRIPTION DRUG MONITORING REPORT IN PATIENT EDDIE: No Instructions: Syncope, [id number] Referrals: PCP,None [Primary Care Provider] - Forms: ED Department Discharge Additional Instructions: 1. Push fluids 2. Slow cautious movements 3. Contact Dr. Lewis's office tomorrow to inform of situation 4. Follow up if any recurring events or concerns. Sepsis Event Note (ED) - Evaluation Sepsis Screening Result: No Definite Risk - Focused Exam Vital Signs: Vital Signs Temp Pulse Resp BP Pulse Ox 07/09/21 11:08 97.8 F 69 16 114/79 95 - My Orders Last 24 Hours: My Active Orders 07/09/21 11:11 Chest 2V [CR] Stat Head wo Cont [CT] Stat - Assessment/Plan Last 24 Hours: My Active Orders 07/09/21 11:11 Chest 2V [CR] Stat Head wo Cont [CT] Stat
== END 2021-07-09 12:55 | disposition home or self-care (01) ==
LOC: CC.ED 11:06
DX: R55 Syncope and collapse (principal); I48.0 Paroxysmal atrial fibrillation; I10 Essential (primary) hypertension; Z79.01 Long term (current) use of anticoagulants; Z79.899 Other long term (current) drug therapy
CPT/HCPCS: 36415; 70450; 71046; 80053; 81001; 82550; 83615; 84484; 85025; 85379; 86140; 93005; 99284; 99284-25

== ENCOUNTER → 2021-09-01 | Day surgery (SDC) | payer MEDICARE, BC ==
[~2021-09-01] MED LIST changes: -Benzocaine 20% Oral Spray 59.2 ML Canister MUCMEM ONE; -Midazolam 1 MG/ML 2 ML SDV IV ONE; +Propofol 200 MG/20 ML SDV ONE
[2021-09-01 11:56] VITALS: PULSE 61
[2021-09-01 12:08] VITALS: BP 108/66
--- NOTE | 2021-09-02 13:04 | OR ---
DATE OF OPERATION: 09/01/2021 PREOPERATIVE DIAGNOSIS: HISTORY OF POLYPS. POSTOPERATIVE DIAGNOSIS: HISTORY OF POLYPS. SURGEON: Mason Connolly MD PROCEDURE: FULL-LENGTH COLONOSCOPY WITH SNARE POLYPECTOMY X3, FORCEPS POLYP REMOVAL X1. ANESTHESIA: MAC. COMPLICATIONS: None. SPECIMEN: Four small tubular adenomas. RECOMMENDATIONS: Followup colonoscopy in 3 years. INDICATIONS: Mr. Urena has multiple colonoscopies with polyps removed in the past. He is due for a routine surveillance scope. DESCRIPTION OF PROCEDURE: The patient was prepped and draped and placed in the left lateral decubitus position. A lubricated Olympus colonoscope was inserted, and with relative ease, advanced to the cecum. The patient was quite tortuous and had a long colon. We were able to get into the cecal pouch and visualize the ileocecal valve and appendiceal orifice. The bowel prep was adequate. Upon withdrawal, the patient again had a small area of a polyp recurrence with kind of a bilobed villous lesion in the cecal pouch. We did remove it with snare in 2 separate sections and suctioned into polyp trap #1. The patient also had 2 small sessile polyps in the proximal to mid ascending colon, one removed with a snare, the second with a forceps. The rest of the ascending and transverse colons were benign. The descending colon was unremarkable. In the sigmoid colon, the patient had 2 more small sessile polyps, each removed with a snare and suctioned into polyp trap #3 without difficulty. The rest of the sigmoid colon was benign. Rectal vault appeared unremarkable. Retroflexion showed no perianal lesions. Air was suctioned. Scope removed without complication. NGHIA/ANURAG /[id number]
== END ==
LOC: CC.SDS 09:41
PROVIDERS: ATTEND Family Medicine
DX: Z12.11 Encounter for screening for malignant neoplasm of colon (principal); D12.0 Benign neoplasm of cecum; D12.2 Benign neoplasm of ascending colon; D12.5 Benign neoplasm of sigmoid colon; E78.5 Hyperlipidemia, unspecified; I10 Essential (primary) hypertension; R73.01 Impaired fasting glucose; I48.91 Unspecified atrial fibrillation; Z79.899 Other long term (current) drug therapy; Z79.01 Long term (current) use of anticoagulants; Z98.890 Other specified postprocedural states
CPT/HCPCS: 45380; 45385; J2704

== ENCOUNTER 2024-08-12 11:44 | Day surgery (SDC) | payer MEDICARE, BC ==
[2024-08-12] MEDS: Lactated Ringers 1,000 ML IV SCH (12:00)
[2024-08-12] MEDS ORDERED: Flumazenil 0.1 MG/ML 5 ML MDV ONE (12:15)
[2024-08-12] MEDS ORDERED: fentaNYL 50 MCG/ML SDV ONE ×2 (12:15)
[2024-08-12] MEDS ORDERED: Midazolam 1 MG/ML 2 ML SDV ONE (12:15)
[2024-08-12] MEDS ORDERED: Ketamine 200 MG/20 ML MDV ONE (12:15)
[2024-08-12] MEDS ORDERED: Propofol 200 MG/20 ML SDV ONE ×2 (12:15)
[2024-08-12 14:01] VITALS: BP 121/70; PULSE 61
== END 2024-08-12 13:50 | disposition home or self-care (01) ==
LOC: CC.SDS 11:44
PROVIDERS: ATTEND Family Medicine
DX: Z12.11 Encounter for screening for malignant neoplasm of colon (principal); D12.3 Benign neoplasm of transverse colon; K57.30 Diverticulosis of large intestine without perforation or abscess without bleeding; Z86.0100 Personal history of colon polyps, unspecified; E78.5 Hyperlipidemia, unspecified; I10 Essential (primary) hypertension; I48.91 Unspecified atrial fibrillation; Z79.01 Long term (current) use of anticoagulants; Z79.899 Other long term (current) drug therapy
CPT/HCPCS: 00811; 88305; 99100; J2250; J2704; J3010; J3490; J7120